=== PATIENT | male | born 1980 | race Caucasian/White ===

== ENCOUNTER 2025-03-17 07:45 | Outpatient (CLI) | payer OTHER, SELFPAY ==
--- OUTSIDE RECORDS SUMMARY | 2025-01-31 11:16 | XMS_ITS | Encounter Summary ---
Author Organization [place] [address] Care Team Providers Care Physician Advisor Name Role Phone No Pcp, Provider Not In [facility] Primary Care Provid er Unavailable Reason for Visit * Reason Comments Hand Injury Encounter Details Date Type Department Care Team (Late st Contact Info) Description 01/31/2025 12:16 PM EDT - 01/31/2025 1:52 PM EDT Emergency [facility] [address] [place] [address] Don Fitzgerald, [address] [place] [id number] Closed fracture of tuft of distal phalanx of finger (Primary Dx); Subungual hematoma of finger, initial encounter Discharge Disposition: Home or Self Care Social History Tobacco Use Types Packs/Day Years Used Date Smoking Tobacco: Every Day Cigarettes Smokeless Tobacco: Never Alcohol Use Standard Drinks/Week Comments Yes 0 (1 standard drink = 0.6 oz pur e alcohol) occ Sex and Gender Information Value Date Recorded Sex Assigned at Not on file Legal Sex Male 4:56 AM EDT Gender Identity Not on file Sexual Orientation Not on file documented as of this encounter Last Filed Vital Signs Vital Sign Reading Time Taken Comments Blood Pressure 142/90 01/31/2025 11:57 AM EDT Pulse 76 01/31/2025 11:57 AM EDT Temperature 36.3 C (97.3 F) 01/31/2025 11:57 AM EDT Respiratory Rate 20 01/31/2025 11:57 AM EDT Oxygen Saturation 99% 01/31/2025 11:57 AM EDT Inhaled Oxygen Concentration - - Weight 81.6 kg (180 lb) 01/31/2025 11:58 AM EDT Height 172.7 cm (5' 8 ) 01/31/2025 11:58 AM EDT Body Mass Index 27.37 01/31/2025 11:58 AM EDT documented in this encounter Functional Status * Suicide Severity Rating Answer Date of Assessment Author No Risk 01/31/2025 11:58 AM EDT Savannah Sinha RN * [place] Suicide Severity Rating Scale (Q shift for moderate and high) Question Answer Date of Assessment Author 1. In the past month, have y ou wished you were or wished you could go to sleep and not wake up? 0 01/31/2025 11:58 AM EDT Savannah Ling RN 2. In the past month, have y ou actually had any thoughts of killing yourself? (If no, skip to question 6) 0 01/31/2025 11:58 AM EDT Savannah Sinha RN 6. Have you ever done anythi ng, started to do anything, or prepared to do anything to end your life? 0 01/31/2025 11:58 AM EDT Savannah Sinha RN documented as of this encounter Discharge Instructions * Discharge Instructions* Kristi Zamora PA - 01/31/2025 1:14 PM EDT Keep the wound clean with soap and water. Wear the splint as directed. Follow-up with a hand specialist above for any additional concerns documented in this encounter Medications at Time of Discharge NALOXONE RESCUE KIT To be given as needed to reverse opioid overdose. 1 Kit 09/07/2016 documented as of this encounter Discharge Disposition Disposition Code Departure Means Destination Comment s Home or Self Snf documented in this encounter ED Notes * Kristi Zamora PA - 01/31/2025 11:54 AM EDT Chief Complaint Patient presents with Hand Injury 44-year-old male presenting with left hand injury. Patient states he accidentally hit his left thumb with a sledgehammer. He has had bleeding from around his nail. States he is having difficulty bending his finger due to pain. Unsure when his last vaccine was. No other concerns Hand Injury Associated symptoms: no abdominal pain, no chest pain, no cough, no diarrhea, no fever, no nausea, no rash, no shortness of breath and no vomiting Patient History Allergies Allergen Reactions Demerol [Meperidine] Hives Home Medications: Prior to Admission medications Medication Sig Start Date End Date Last Dose Authorizing Provider NALOXONE RESCUE KIT To be given as needed to reverse opioid overdose. 09/07/16 Quinton Saez APRN Past Medical History: History reviewed. No pertinent past medical history. Social History: reports that he has been smoking cigarettes. He has never used smokeless tobacco. He reports current alcohol use. He reports current drug use. Drug: IV. E-Cigarettes (such as Vapes or Juul) E-Cigarette Use Never User Family History: No family history on file. Surgical History: Past Surgical History: Procedure Laterality Date BACK SURGERY Review of Systems Review of Systems Constitutional: Negative for chills and fever. HENT: Negative. Eyes: Negative. Respiratory: Negative for cough and shortness of breath. Cardiovascular: Negative for chest pain, palpitations and leg swelling. Gastrointestinal: Negative for abdominal pain, diarrhea, nausea and vomiting. Genitourinary: Negative for dysuria and frequency. Musculoskeletal: Negative. Skin: Positive for wound. Negative for rash. Neurological: Negative. Psychiatric/Behavioral: Negative. All other systems reviewed and are negative. Physical Exam Blood pressure 142/90, pulse 76, temperature 97.3 ??F (36.3 ??C), temperature source Temporal, resp. rate 20, height 5' 8 (1.727 m), weight 180 lb (81.6 kg), SpO2 99%. Physical Exam Constitutional: General: He is not in acute distress. Appearance: He is not toxic-appearing. HENT: Head: Normocephalic. Musculoskeletal: Comments: Left first digit with tenderness to distal finger and DIP joint. Full range of motion of MCP. Limited range of motion of DIP due to pain. Subungual hematoma approximately 50% of left thumb Neurological: Mental Status: He is alert. Radiology/EKG/Labs: Results for orders placed or performed during the hospital encounter of 01/31/25 XR FINGER LEFT MINIMUM 2 VW Narrative XR FINGER LEFT MINIMUM 2 VW, 01/31/2025 12:38 PM CLINICAL HISTORY: -1st digit crush injury COMPARISON: None. PROCEDURE COMMENTS: XR FINGER LEFT MINIMUM 2 VW FINDINGS: There is a comminuted nondisplaced fracture involving the first distal phalanx, shaft and tuft. Regional soft tissue swelling is noted. No foreign body. No definite articular surface involvement. Impression Comminuted nondisplaced first distal phalanx fracture. - Note: Radiology results need to be interpreted within a comprehensive clinical context. If you have questions about the radiology report, please contact the office of the ordering clinician. ED Course: Appropriate laboratory and radiology studies reviewed ED Clinical Impression: Left distal phalanx fracture Subungual hematoma MDM Medical Decision Making 44-year-old male presenting with hand injury. Patient has tenderness to his distal thumb and DIP joint. He has a subungual hematoma taking a 50% on his nailbed. X-ray reveals a distal phalanx fracture. He was given Percocet for pain. Additionally, I performed a digital nerve block with significant pain relief. I also trephinated the nail and patient had pain relief with this as well. The finger was thoroughly cleaned. There is no associated laceration. Patient was provided a finger splint. He is neurovascularly intact. Recommend ibuprofen and Tylenol for pain and hand follow-up. He is safe for discharge Condition at Discharge/Transfer from Department: Stable This chart was completed using voice recognition technology and may contain unintended errors Kristi Zamora PA 01/31/25 1325 Cosigned by Don Fitzgerald DO at 01/31/2025 3:18 PM EDT Associated attestation - Don Fitzgerald DO - 01/31/2025 3:18 PM EDT Emergency medicine attending supervisory note: I have reviewed the presenting complaint, exam, workup, and treatment plan of the advanced practiceclinician (APC). I either directly discussed the patient's information and plan of care with the APC or was immediately available to discuss any concerns, personally examine the patient, and/or manage complications if needed. I personally approved the management plan for this patient and take responsibility for the patient management. I interpreted EKG/x- rays independently and the results, when performed, are described as below. Based on my review of the information available, I believe the impression and treatment plan are reasonable and that there is a very low likelihood of deterioration that could result in disability or . This chart was completed using voice recognition technology and may contain unintended errors documented in this encounter Plan of Treatment Not on file documented as of this encounter Goals Goal Patient Goal Type Associated Problems Recent Progress Patient-Stated? Author Maintain a healthy diet, exercise regularly and maintain an ideal body weight General No Lashanda Lo RN Stay Tobacco Free Lifestyle No Lashanda Lo RN documented as of this encounter Procedures Procedure Name Priority Date/Time Associated Diagnosis Comments XR FINGER LEFT MINIMUM 2 VW ROSALINO 01/31/2025 12:38 PM EDT documented in this encounter Results * XR FINGER LEFT MINIMUM 2 VW (01/31/2025 12:38 PM EDT) Anatomical Region Laterality Modality Hand Radiographic Ella ging 01/31/2025 12:3 8 PM EDT Impressions 01/31/2025 12:54 PM EDT Comminuted nondisplaced first distal phalanx fracture. - Note: Radiology results need to be interpreted within a comprehensive clinical context. If you have questions about the radiology report, please contact the office of the ordering clinician. Narrative 01/31/2025 12:54 PM EDT XR FINGER LEFT MINIMUM 2 VW, 01/31/2025 12:38 PM CLINICAL HISTORY: -1st digit crush injury COMPARISON: None. PROCEDURE COMMENTS: XR FINGER LEFT MINIMUM 2 VW FINDINGS: There is a comminuted nondisplaced fracture involving the first distal phalanx, shaft and tuft. Regional soft tissue swelling is noted. No foreign body. No definite articular surface involvement. Procedure Note Burton Mac MD - 01/31/2025 XR FINGER LEFT MINIMUM 2 VW, 01/31/2025 12:38 PM CLINICAL HISTORY: -1st digit crush injury COMPARISON: None. PROCEDURE COMMENTS: XR FINGER LEFT MINIMUM 2 VW FINDINGS: There is a comminuted nondisplaced fracture involving the first distalphalanx, shaft and tuft. Regional soft tissue swelling is noted. No foreign body.No definite articular surface involvement. IMPRESSION: Comminuted nondisplaced first distal phalanx fracture. - Note: Radiology results need to be interpreted within a comprehensiveclinical context. If you have questions about the radiology report, please contactthe office of the ordering clinician. Kristi MALONEY IMG DIAGNOSTIC IMAGING ORDERAB LES Final Result documented in this encounter Visit Diagnoses Diagnosis Closed fracture of tuft of distal phalanx of finger- Primary Subungual hematoma of finger, initial encounter documented in this encounter Administered Medications Inactive Administered Medications - up to 1 most recent administrations Medication Order MAR Action Action Date Dose Rate Site oxyCODONE-acetaminophen (PERCOCET) 5-325 mg per tablet 1 Tablet 1 Tablet, Oral, ONCE, 1 dose, On Thu01/31/25 at 1230, *Maximum adult dose of acetaminophen is 4000 mg from all sources in 24 hours.* Given 01/31/2025 12:55 PM EDT 1 Tablet documented in this encounter Active and Recently Administered Medications Times are shown in EDT. Scheduled Medication Order 01/29/2025 01/30/2025 01/31/2025 oxyCODONE-acetaminophen (PERCOCET) 5-325 mg per tablet 1 Tablet (COMPLETED) 1 Tablet, Oral, ONCE, 1 dose, On Thu01/31/25 at 1230, *Maximum adult dose of acetaminophen is 4000 mg from all sources in 24 hours.* 1255 (Given - Provid er: Mohsen Morrow RN) documented in this encounter Orders Medications Ordered That Earl ht Not Have Been Administered Count Last Ordered Date First Ordered Date oxyCODONE-acetaminophen (PER COCET) 5-325 mg per tablet 1 Tablet 1 01/31/2025 Nursing Count Last Ordered Date First Orde red Date APPLICATION FINGER SPLINT STATIC 1 02/01/20 25 CLEANSE WOUND 1 01/31/2025 documented in this encounter Care Teams Physician Advisor Relationship Specialty Start Date End Date No Pcp, Provider Not In [facility] PCP - General 10/25/23 documented as of this encounter
--- OUTSIDE RECORDS SUMMARY | 2025-03-17 07:47 | XMS_ITS | Clinical Summary ---
[facility] Address [address] [place] [address] Phone Care Team Providers Care Ict Developer Name Role Phone No Pcp, Provider Not In [facility] Primary Care Provid er Unavailable Allergies Active Allergy Reactions Criticality Noted Date Comments Meperidine Hives 02/03/2011 Medications NALOXONE RESCUE KIT To be given as needed to reverse opioid overdose. 1 Kit 09/07/2016 Active Active Problems Problem Noted Date Diagnosed Date Suppurative tenosynovitis of flexor tendon of ri ght hand 11/15/2020 Encounters Date Type Department Care Team Description 01/31/2025 12:16 PM EDT - 01/31/2025 1:52 PM EDT Emergency [facility] [address] [place] [address] Don Fitzgerald DO Closed fracture of tuft of distal phalanx of finger (Primary Dx); Subungual hematoma of finger, initial encounter Discharge Disposition: Home or Self Care from Last 3 Months Immunizations Immunization Administration Dates Next Due Tdap 01/31/2025,05/12/2016 Surgical History Surgery Date Site/Laterality Comments BACK SURGERY Social History Tobacco Use Types Packs/Day Years Used Date Smoking Tobacco: Every Day Cigarettes Smokeless Tobacco: Never Tobacco Cessation:Ready to Q uit: No Alcohol Use Standard Drinks/Week Comments Yes 0 (1 standard drink = 0.6 oz pur e alcohol) occ Sex and Gender Information Value Date Recorded Sex Assigned at Not on file Legal Sex Male 4:56 AM EDT Gender Identity Not on file Sexual Orientation Not on file Last Filed Vital Signs Vital Sign Reading [...] Mass Index 27.37 01/31/2025 11:58 AM EDT Plan of Treatment Health Maintenance Due Date Last Done Comments Hepatitis B Vaccine (1 of 3 - 19+ 3-dose series) 2001 Pneumococcal Vaccine 0-49 (1 of 2 - PCV) 2001 Annual Wellness Exam 11/24/2015 11/23/2014 (Declined) COVID-19 Vaccine (1 - 2024-2 6 season) 2025 Influenza Vaccine (#1) 2025 4, 01/29/2017, 11/23/2014 (Declined) DTaP/TDaP/Td (3 - Td or Tdap) 01/31/2035, 05/12/2016 Meningococcal B Vaccine Aged Out No l onger eligible based on patient's age to complete this topic Goals Goal Patient Goal Type Associated Problems Recent Progress Patient-Stated? Author Maintain a healthy diet, exercise regularly and maintain an ideal body weight General No Lashanda Lo, FABIÁN Stay Tobacco Free Lifestyle No Lashanda Lo, offender job retention specialist Procedure Name Priority Date/Time Associated Diagnosis Comments XR FINGER LEFT MINIMUM 2 VW ROSALINO 01/31/2025 12:38 PM EDT from Last 3 Months Results * XR FINGER LEFT MINIMUM 2 [...] IMG DIAGNOSTIC IMAGING ORDERAB LES Final Result from Last 3 Months Insurance [facility] [place] [address] [employer] Care Teams Ict Developer Relationship Specialty Start Date End Date No Pcp, Provider Not In Epic PCP - General 10/25/23
--- NOTE | 2025-03-17 07:50 | XR_ITS ---
FINAL REPORT CLINICAL HISTORY: R/O METAL IN EYES , HX OF WELDING. COMPARISON: None FINDINGS: ORBITS Look up and look down views were obtained. No fracture is identified. The sinuses are clear. No air-fluid levels identified. No metallic foreign body is identified. IMPRESSION: No acute process. No evidence of metal. Reviewed, Interpreted and Dictated by Rubin Collins MD Transcribed by Radha Morillo Authenticated and [facility]
--- NOTE | 2025-03-17 08:00 | MR_ITS ---
FINAL REPORT CLINICAL HISTORY: lumbar DDD lbp with pain down left leg COMPARISON: None FINDINGS: Multiplanar MR imaging of the lumbar spine was performed without contrast. On the sagittal T2-weighted images, there is abnormal decreased signal at the L4-5 and L5-S1 disc level. The vertebrae are of normal height. The vertebral alignment is normal. L1-2: There is no significant canal stenosis or neural foraminal narrowing. L2-3: There is no significant canal stenosis or neural foraminal narrowing. L3-4: There is no significant canal stenosis or neural foraminal narrowing. L4-5: Mild right posterolateral disc protrusion with annular tear. Mild to moderate right neuroforaminal narrowing. L5-S1: Left posterolateral disc protrusion. Moderate compromise left lateral recess. Moderate left neuroforaminal narrowing. IMPRESSION: Disc protrusion to the right at L4-5 and to the left at L5-S1 with corresponding neuroforaminal compromise. Reviewed, Interpreted and Dictated by Rubin Collins MD Transcribed by Radha Morillo Authenticated and [facility]
== END 2025-03-17 23:59 | disposition home or self-care (01) ==
LOC: RAD 07:45
PROVIDERS: PCP Family Medicine; Visit Provider Nurse Practitioner
DX: M51.16 Intervertebral disc disorders with radiculopathy, lumbar region (principal); M51.17 Intervertebral disc disorders with radiculopathy, lumbosacral region; M99.73 Connective tissue and disc stenosis of intervertebral foramina of lumbar region; Z04.89 Encounter for examination and observation for other specified reasons
CPT/HCPCS: 70200; 72148